=== PATIENT | female | born 1945 | race Caucasian/White ===

== ENCOUNTER → 2018-11-03 | Day surgery (SDC) | payer MEDICARE ==
--- NOTE | 2018-10-28 14:37 | Diagnostic Imaging Report ---
EXAMINATION: CHEST 2 VIEWS INDICATION: Pre-operative COMPARISON: None FINDINGS: LINES/TUBES:None LUNGS:The lungs are well-inflated. No focal consolidation or pulmonary edema. PLEURA:No pleural effusion or pneumothorax. MEDIASTINUM:The cardiomediastinal silhouette appears normal in size and shape. Atherosclerotic calcifications of the thoracic aorta. BONES/SOFT TISSUES:No acute osseous injury. ABDOMEN:No free air under the diaphragm. IMPRESSION: No focal pneumonia or pulmonary edema. Signed by: Malia Chisholm MD on 10/28/2018 2:33 PM
[~2018-11-03] MED LIST: ACETAMINOPHEN 1000 MG/100 ML 100 ML IV ONE; ACETAMINOPHEN/CODEINE 300MG - 30MG TAB ONE; AMITRIPTYLINE H25 MG PO; B12 SL; BIOTIN1 MG PO; BUPIVACAINE HCL 0.25% 10ML MPF VIAL INJ ONE; CALCIUM PO; CARVEDILOL3.125 MG PO; CEFAZOLIN SOD 1 GM/NS 50ML 100 ML IV ONE; CRESTOR10 MG PO; DEXAMETHASONE SOD PHOS INJ 4 MG/ML VIAL ONE; DIOVAN HCT 3201 EAC1 PO; DIOVAN160 MG PO; FENTANYL CITRATE/PF 100MCG/2 ML INJ ONE; GABAPENTIN300 MG PO; LIDOCAINE HCL (LTA) 4 ML SOLN ONE; LIDOCAINE HCL 2% JELLY 5 ML TUBE ONE; LIDOCAINE HCL 2% LOCAL INJ 5 ML SDV VIAL INJ ONE; MIDAZOLAM HCL 2 MG/2 ML VIAL ONE; MORPHINE SULFATE INJ 10 MG/ML ONE; MULTIVITAMINS1 EAC7 PO; ONDANSETRON HCL INJ 2MG/ML 2ML 2 MG/ML VIAL ONE; PROPOFOL IV EMULSION 10 MG/ML 20 ML VIAL ONE; ROCURONIUM BROMIDE 10 MG/ML 5ML VIAL ONE; SCOPOLAMINE 1.5 MG PATCH ONE; SEVOFLURANE INHAL SOLN 250 ML PEN BTL ONE; VITAMIN B1 PO
--- OUTSIDE RECORDS SUMMARY | 2018-11-03 06:30 | XMS REPORT | Continuity of Care Document ---
Author Author [facility] Address Unknown Phone Unavailable Care Team Providers Care Retail Event And Sales Assistant Name Role Phone [facility] Unavailable Unavailable Problems Problem Status Onset Date Classification Date Reported Comments Source SCREENING FOR OSTEOPOROSIS Active 02/16/2014 Condition 02/23/2014 [facility] OBSTRUCTION, SMALL BOWEL Active 02/16/2014 Condition 02/23/2014 [facility] PREOPERATIVE CARDIOVASCULAR EXAMINATION Inactive 12/24/2013 Condition 02/23/2014 [facility] OSTEOARTHRITIS OF KNEE Active 12/24/2013 Condition 02/23/2014 [facility] LEG CRAMPS, BENIGN Active 06/29/2013 Condition 02/23/2014 [facility] RESTLESS LEGS SYNDROME Inactive 06/15/2013 Condition 02/23/2014 [facility] SINUS TACHYCARDIA Inactive 06/15/2013 Condition 02/23/2014 [facility] HYPONATREMIA Inactive 02/13/2013 Condition 02/23/2014 [facility] ROUTINE GYNECOLOGICAL EXAMINATION Active 02/12/2013 Condition 02/23/2014 [facility] SCREENING, COLON CANCER Inactive 02/12/2013 Condition 02/23/2014 [facility] OTHER SCREENING MAMMOGRAM Active 01/20/2013 Condition 02/23/2014 [facility] HYPERCALCEMIA Inactive 01/13/2013 Condition 02/23/2014 [facility] DERMATITIS Inactive 01/09/2013 Condition 02/23/2014 [facility] MYALGIA Inactive 01/09/2013 Condition 02/23/2014 [facility] PHYSICAL EXAM Inactive 03/04/2012 Condition 02/23/2014 [facility] DE QUERVAIN'S TENOSYNOVITIS Inactive 12/17/2011 Condition 02/23/2014 [facility] NEED PROPHYLACTIC VACCINATION&INOCULATION FLU Inactive 12/17/2011 Condition 02/23/2014 [facility] ANXIETY Inactive Condition 02/23/2014 [facility] HYPERLIPIDEMIA, MIXED Active Condition 02/23/2014 [facility] HYPERTENSION, BENIGN ESSENTIAL Active Condition 02/23/2014 [facility] Medications Medication Details Route Status Patient Instructions Ordering Provider Order Date Source MIRAPEX 0.125 MG TABS Take 1 tab po 2-3 hours before bedtime No Longer Active 06/15/2013 [facility] VALSARTAN-HYDROCHLOROTHIAZIDE 320-12.5 MG TABS take 1 tablet po daily Active 02/13/2013 [facility] VALSARTAN-HYDROCHLOROTHIAZIDE 320-12.5 MG TABS take 1 tablet po daily Active 02/13/2013 [facility] DIOVAN HCT 320-25 MG TABS 1 tab daily No Longer Active 04/07/2012 [facility] SIMVASTATIN 40 MG TABS 1 tablet po q day Active 04/07/2012 [facility] SIMVASTATIN 40 MG TABS 1 tablet po q day Active 04/07/2012 [facility] SIMVASTATIN 40 MG TABS 1 tablet po q day Active 04/07/2012 [facility] SIMVASTATIN 40 MG TABS 1 tablet po q day Active 04/07/2012 [facility] VYTORIN 10-20 MG TABS Take 1 tablet po daily No Longer Active 03/04/2012 [facility] VYTORIN 10-20 MG TABS Take 1 tablet po daily No Longer Active 03/04/2012 [facility] ZOLOFT 100 MG TABS 1/2 tab po daily. No Longer Active 12/17/2011 [facility] ZOLOFT 100 MG TABS 1/2 tab po daily. No Longer Active 12/17/2011 [facility] Allergies, Adverse Reactions, Alerts Substance Category Reaction Severity Reaction type Status Date Reported Comments Source VICODIN Drug allergy VICODIN 12/24/2013 [facility] LATEX Environmental allergy LATEX [facility] TETRACYCLINE Drug allergy TETRACYCLINE [facility] Immunizations Immunization Date Given Site Status Last Updated Comments Source influenza immunization (Flu Vax) has been administered 12/24/2013 completed [facility] pneumococcal immunization administered 06/29/2013 completed [facility] influenza immunization (Flu Vax) has been administered 12/17/2011 completed [facility] influenza immunization (Flu Vax) has been administered 01/03/2011 completed [facility] influenza immunization (Flu Vax) has been administered 01/31/2007 completed [facility] Results Order Name Results Value Reference Range Date Interpretation Comments Source Chemistry TSH 1.910 0.360 - 3.740 02/23/2014 [facility] Chemistry CHOLESTEROL 203 - 199 02/23/2014 [facility] Chemistry TRIGLYCERIDE 140 - 149 02/23/2014 [facility] Chemistry HDL 78 >=61 02/23/2014 [facility] Chemistry SODIUM 135 MEQ/L 135 - 145 02/23/2014 [facility] Chemistry POTASSIUM 4.1 MEQ/L 3.5 - 5.1 02/23/2014 [facility] Chemistry CREATININE 0.8 0.5 - 1.4 02/23/2014 [facility] Chemistry BUN 9 7 - 22 02/23/2014 [facility] Chemistry BUN/CREAT 11 6 - 25 02/23/2014 [facility] Chemistry ALBUMIN 3.5 3.5 - 5.0 02/23/2014 [facility] Chemistry CALCIUM 8.7 8.5 - 10.5 02/23/2014 [facility] Chemistry SGPT (ALT) 16 0 - 65 02/23/2014 [facility] Chemistry SGOT (AST) 18 0 - 37 02/23/2014 [facility] Chemistry ALK PHOS 100 39 - 136 02/23/2014 [facility] Chemistry TSH 1.910 0.360 - 3.740 02/23/2014 [facility] Chemistry CHOLESTEROL 203 - 199 02/23/2014 [facility] Chemistry TRIGLYCERIDE 140 - 149 02/23/2014 [facility] Chemistry HDL 78 >=61 02/23/2014 [facility] Chemistry SODIUM 135 MEQ/L 135 - 145 02/23/2014 [facility] Chemistry POTASSIUM 4.1 MEQ/L 3.5 - 5.1 02/23/2014 [facility] Chemistry CREATININE 0.8 0.5 - 1.4 02/23/2014 [facility] Chemistry BUN 9 7 - 22 02/23/2014 [facility] Chemistry BUN/CREAT 11 6 - 25 02/23/2014 [facility] Chemistry ALBUMIN 3.5 3.5 - 5.0 02/23/2014 [facility] Chemistry CALCIUM 8.7 8.5 - 10.5 02/23/2014 [facility] Chemistry SGPT (ALT) 16 0 - 65 02/23/2014 [facility] Chemistry SGOT (AST) 18 0 - 37 02/23/2014 [facility] Chemistry ALK PHOS 100 39 - 136 02/23/2014 [facility] Chemistry TSH 1.910 0.360 - 3.740 02/23/2014 [facility] Chemistry CHOLESTEROL 203 - 199 02/23/2014 [facility] Chemistry TRIGLYCERIDE 140 - 149 02/23/2014 [facility] Chemistry HDL 78 >=61 02/23/2014 [facility] Chemistry LDL 97 - 99 02/23/2014 [facility] Chemistry SODIUM 135 MEQ/L 135 - 145 02/23/2014 [facility] Chemistry POTASSIUM 4.1 MEQ/L 3.5 - 5.1 02/23/2014 [facility] Chemistry CREATININE 0.8 0.5 - 1.4 02/23/2014 [facility] Chemistry BUN 9 7 - 22 02/23/2014 [facility] Chemistry BUN/CREAT 11 6 - 25 02/23/2014 [facility] Chemistry ALBUMIN 3.5 3.5 - 5.0 02/23/2014 [facility] Chemistry CALCIUM 8.7 8.5 - 10.5 02/23/2014 [facility] Chemistry SGPT (ALT) 16 0 - 65 02/23/2014 [facility] Chemistry SGOT (AST) 18 0 - 37 02/23/2014 [facility] Chemistry ALK PHOS 100 39 - 136 02/23/2014 [facility] Chemistry TSH 1.910 0.360 - 3.740 02/23/2014 [facility] Chemistry CHOLESTEROL 203 - 199 02/23/2014 [facility] Chemistry TRIGLYCERIDE 140 - 149 02/23/2014 [facility] Chemistry HDL 78 >=61 02/23/2014 [facility] Chemistry LDL 97 - 99 02/23/2014 [facility] Chemistry SODIUM 135 MEQ/L 135 - 145 02/23/2014 [facility] Chemistry POTASSIUM 4.1 MEQ/L 3.5 - 5.1 02/23/2014 [facility] Chemistry CREATININE 0.8 0.5 - 1.4 02/23/2014 [facility] Chemistry BUN 9 7 - 22 02/23/2014 [facility] Chemistry BUN/CREAT 11 6 - 25 02/23/2014 [facility] Chemistry ALBUMIN 3.5 3.5 - 5.0 02/23/2014 [facility] Chemistry CALCIUM 8.7 8.5 - 10.5 02/23/2014 [facility] Chemistry SGPT (ALT) 16 0 - 65 02/23/2014 [facility] Chemistry SGOT (AST) 18 0 - 37 02/23/2014 [facility] Chemistry ALK PHOS 100 39 - 136 02/23/2014 [facility] Hematology HGB 11.3 12.0 - 16.0 02/23/2014 [facility] Hematology HCT 34.2 36.0 - 48.0 02/23/2014 [facility] Hematology PLATELETS 345 K/CMM 133 - 450 02/23/2014 [facility] Hematology HGB 11.3 12.0 - 16.0 02/23/2014 [facility] Hematology HCT 34.2 36.0 - 48.0 02/23/2014 [facility] Hematology PLATELETS 345 K/CMM 133 - 450 02/23/2014 [facility] Hematology HGB 11.3 12.0 - 16.0 02/23/2014 [facility] Hematology HCT 34.2 36.0 - 48.0 02/23/2014 [facility] Hematology PLATELETS 345 K/CMM 133 - 450 02/23/2014 [facility] Hematology HGB 11.3 12.0 - 16.0 02/23/2014 [facility] Hematology HCT 34.2 36.0 - 48.0 02/23/2014 [facility] Hematology PLATELETS 345 K/CMM 133 - 450 02/23/2014 [facility] Urinalysis UA COLOR Light Yellow 02/23/2014 [facility] Urinalysis BACTERIA URN Few 02/23/2014 [facility] Urinalysis UA COLOR Light Yellow 02/23/2014 [facility] Urinalysis BACTERIA URN Few 02/23/2014 [facility] Urinalysis UA COLOR Light Yellow 02/23/2014 [facility] Urinalysis BACTERIA URN Few 02/23/2014 [facility] Urinalysis UA COLOR Light Yellow 02/23/2014 [facility] Urinalysis BACTERIA URN Few 02/23/2014 [facility] Chemistry SODIUM 135 MEQ/L 135 - 145 12/24/2013 [facility] Chemistry POTASSIUM 3.9 MEQ/L 3.5 - 5.1 12/24/2013 [facility] Chemistry CREATININE 0.7 0.5 - 1.4 12/24/2013 [facility] Chemistry BUN 10 7 - 22 12/24/2013 [facility] Chemistry BUN/CREAT 14 6 - 25 12/24/2013 [facility] Chemistry ALBUMIN 4.0 3.5 - 5.0 12/24/2013 [facility] Chemistry CALCIUM 9.4 8.5 - 10.5 12/24/2013 [facility] Chemistry SGPT (ALT) 37 0 - 65 12/24/2013 [facility] Chemistry SGOT (AST) 42 0 - 37 12/24/2013 [facility] Chemistry ALK PHOS 82 39 - 136 12/24/2013 [facility] Chemistry SODIUM 135 MEQ/L 135 - 145 12/24/2013 [facility] Chemistry POTASSIUM 3.9 MEQ/L 3.5 - 5.1 12/24/2013 [facility] Chemistry CREATININE 0.7 0.5 - 1.4 12/24/2013 [facility] Chemistry BUN 10 7 - 22 12/24/2013 [facility] Chemistry BUN/CREAT 14 6 - 25 12/24/2013 [facility] Chemistry ALBUMIN 4.0 3.5 - 5.0 12/24/2013 [facility] Chemistry CALCIUM 9.4 8.5 - 10.5 12/24/2013 [facility] Chemistry SGPT (ALT) 37 0 - 65 12/24/2013 [facility] Chemistry SGOT (AST) 42 0 - 37 12/24/2013 [facility] Chemistry ALK PHOS 82 39 - 136 12/24/2013 [facility] Chemistry SODIUM 135 MEQ/L 135 - 145 12/24/2013 [facility] Chemistry POTASSIUM 3.9 MEQ/L 3.5 - 5.1 12/24/2013 [facility] Chemistry CREATININE 0.7 0.5 - 1.4 12/24/2013 [facility] Chemistry BUN 10 7 - 22 12/24/2013 [facility] Chemistry BUN/CREAT 14 6 - 25 12/24/2013 [facility] Chemistry ALBUMIN 4.0 3.5 - 5.0 12/24/2013 [facility] Chemistry CALCIUM 9.4 8.5 - 10.5 12/24/2013 [facility] Chemistry SGPT (ALT) 37 0 - 65 12/24/2013 [facility] Chemistry SGOT (AST) 42 0 - 37 12/24/2013 [facility] Chemistry ALK PHOS 82 39 - 136 12/24/2013 [facility] Chemistry SODIUM 135 MEQ/L 135 - 145 12/24/2013 [facility] Chemistry POTASSIUM 3.9 MEQ/L 3.5 - 5.1 12/24/2013 [facility] Chemistry CREATININE 0.7 0.5 - 1.4 12/24/2013 [facility] Chemistry BUN 10 7 - 22 12/24/2013 [facility] Chemistry BUN/CREAT 14 6 - 25 12/24/2013 [facility] Chemistry ALBUMIN 4.0 3.5 - 5.0 12/24/2013 [facility] Chemistry CALCIUM 9.4 8.5 - 10.5 12/24/2013 [facility] Chemistry SGPT (ALT) 37 0 - 65 12/24/2013 [facility] Chemistry SGOT (AST) 42 0 - 37 12/24/2013 [facility] Chemistry ALK PHOS 82 39 - 136 12/24/2013 [facility] Hematology HGB 13.8 12.0 - 16.0 12/24/2013 [facility] Hematology HCT 39.6 36.0 - 48.0 12/24/2013 [facility] Hematology PLATELETS 246 K/CMM 133 - 450 12/24/2013 [facility] Hematology HGB 13.8 12.0 - 16.0 12/24/2013 [facility] Hematology HCT 39.6 36.0 - 48.0 12/24/2013 [facility] Hematology PLATELETS 246 K/CMM 133 - 450 12/24/2013 [facility] Hematology HGB 13.8 12.0 - 16.0 12/24/2013 [facility] Hematology HCT 39.6 36.0 - 48.0 12/24/2013 [facility] Hematology PLATELETS 246 K/CMM 133 - 450 12/24/2013 [facility] Chemistry SODIUM 138 134 - 144 03/03/2013 [facility] Chemistry POTASSIUM 4.2 3.5 - 5.2 03/03/2013 [facility] Chemistry SODIUM 138 134 - 144 03/03/2013 [facility] Chemistry POTASSIUM 4.2 3.5 - 5.2 03/03/2013 [facility] Chemistry SODIUM 138 134 - 144 03/03/2013 [facility] Chemistry POTASSIUM 4.2 3.5 - 5.2 03/03/2013 [facility] Chemistry ALBUMIN 4.3 3.6 - 4.8 02/27/2013 [facility] Chemistry ALK PHOS 70 39 - 117 02/27/2013 [facility] Chemistry SGOT (AST) 28 0 - 40 02/27/2013 [facility] Chemistry SGPT (ALT) 17 0 - 32 02/27/2013 [facility] Chemistry ALBUMIN 4.3 3.6 - 4.8 02/27/2013 [facility] Chemistry ALK PHOS 70 39 - 117 02/27/2013 [facility] Chemistry SGOT (AST) 28 0 - 40 02/27/2013 [facility] Chemistry SGPT (ALT) 17 0 - 32 02/27/2013 [facility] Chemistry ALBUMIN 4.3 3.6 - 4.8 02/27/2013 [facility] Chemistry ALK PHOS 70 39 - 117 02/27/2013 [facility] Chemistry SGOT (AST) 28 0 - 40 02/27/2013 [facility] Chemistry SGPT (ALT) 17 0 - 32 02/27/2013 [facility] Chemistry CHOLESTEROL 206 125 - 200 02/13/2013 [facility] Chemistry HDL 79 >=46 02/13/2013 [facility] Chemistry TRIGLYCERIDE 127 - 150 02/13/2013 [facility] Chemistry LDL 102 MG/DL (CALC) - 130 02/13/2013 [facility] Chemistry BUN 16 7 - 25 02/13/2013 [facility] Chemistry CREATININE 0.80 0.50 - 0.99 02/13/2013 [facility] Chemistry BUN/CREAT NOT APPLICABLE (calc) - 02/13/2013 [facility] Chemistry SODIUM 133 135 - 146 02/13/2013 [facility] Chemistry POTASSIUM 3.6 3.5 - 5.3 02/13/2013 [facility] Chemistry CALCIUM 10.2 8.6 - 10.4 02/13/2013 [facility] Chemistry ALBUMIN 4.8 3.6 - 5.1 02/13/2013 [facility] Chemistry ALK PHOS 73 33 - 130 02/13/2013 [facility] Chemistry SGOT (AST) 35 10 - 35 02/13/2013 [facility] Chemistry SGPT (ALT) 22 6 - 29 02/13/2013 [facility] Chemistry TSH 1.75 0.40 - 4.50 02/13/2013 [facility] Chemistry T4, FREE 1.3 0.8 - 1.8 02/13/2013 [facility] Chemistry CHOLESTEROL 206 125 - 200 02/13/2013 [facility] Chemistry HDL 79 >=46 02/13/2013 [facility] Chemistry TRIGLYCERIDE 127 - 150 02/13/2013 [facility] Chemistry LDL 102 MG/DL (CALC) - 130 02/13/2013 [facility] Chemistry BUN 16 7 - 25 02/13/2013 [facility] Chemistry CREATININE 0.80 0.50 - 0.99 02/13/2013 [facility] Chemistry BUN/CREAT NOT APPLICABLE (calc) - 02/13/2013 [facility] Chemistry SODIUM 133 135 - 146 02/13/2013 [facility] Chemistry POTASSIUM 3.6 3.5 - 5.3 02/13/2013 [facility] Chemistry CALCIUM 10.2 8.6 - 10.4 02/13/2013 [facility] Chemistry ALBUMIN 4.8 3.6 - 5.1 02/13/2013 [facility] Chemistry ALK PHOS 73 33 - 130 02/13/2013 [facility] Chemistry SGOT (AST) 35 10 - 35 02/13/2013 [facility] Chemistry SGPT (ALT) 22 6 - 29 02/13/2013 [facility] Chemistry TSH 1.75 0.40 - 4.50 02/13/2013 [facility] Chemistry T4, FREE 1.3 0.8 - 1.8 02/13/2013 [facility] Chemistry CHOLESTEROL 206 125 - 200 02/13/2013 [facility] Chemistry HDL 79 >=46 02/13/2013 [facility] Chemistry TRIGLYCERIDE 127 - 150 02/13/2013 [facility] Chemistry LDL 102 MG/DL (CALC) - 130 02/13/2013 [facility] Chemistry BUN 16 7 - 25 02/13/2013 [facility] Chemistry CREATININE 0.80 0.50 - 0.99 02/13/2013 [facility] Chemistry BUN/CREAT NOT APPLICABLE (calc) 6 - 02/13/2013 [facility] Chemistry SODIUM 133 135 - 146 02/13/2013 [facility] Chemistry POTASSIUM 3.6 3.5 - 5.3 02/13/2013 [facility] Chemistry CALCIUM 10.2 8.6 - 10.4 02/13/2013 [facility] Chemistry ALBUMIN 4.8 3.6 - 5.1 02/13/2013 [facility] Chemistry ALK PHOS 73 33 - 130 02/13/2013 [facility] Chemistry SGOT (AST) 35 10 - 35 02/13/2013 [facility] Chemistry SGPT (ALT) 22 6 - 29 02/13/2013 [facility] Chemistry TSH 1.75 0.40 - 4.50 02/13/2013 [facility] Chemistry T4, FREE 1.3 0.8 - 1.8 02/13/2013 [facility] Hematology HGB 13.6 11.7 - 15.5 02/13/2013 [facility] Hematology HCT 39.7 35.0 - 45.0 02/13/2013 [facility] Hematology PLATELETS 259 THOUSAND/UL 140 - 400 02/13/2013 [facility] Hematology HGB 13.6 11.7 - 15.5 02/13/2013 [facility] Hematology HCT 39.7 35.0 - 45.0 02/13/2013 [facility] Hematology PLATELETS 259 THOUSAND/UL 140 - 400 02/13/2013 [facility] Hematology HGB 13.6 11.7 - 15.5 02/13/2013 [facility] Hematology HCT 39.7 35.0 - 45.0 02/13/2013 [facility] Hematology PLATELETS 259 THOUSAND/UL 140 - 400 02/13/2013 [facility] Urinalysis UA COLOR YELLOW 02/13/2013 [facility] Urinalysis EPI CELL UR NONE SEEN - 5 02/13/2013 [facility] Urinalysis BACTERIA URN NONE SEEN 02/13/2013 [facility] Urinalysis UA COLOR YELLOW 02/13/2013 [facility] Urinalysis EPI CELL UR NONE SEEN - 5 02/13/2013 [facility] Urinalysis BACTERIA URN NONE SEEN 02/13/2013 [facility] Urinalysis UA COLOR YELLOW 02/13/2013 [facility] Urinalysis EPI CELL UR NONE SEEN - 02/13/2013 [facility] Urinalysis BACTERIA URN NONE SEEN 02/13/2013 [facility] Chemistry BUN 18 7 - 25 01/13/2013 [facility] Chemistry CREATININE 0.78 0.50 - 0.99 01/13/2013 [facility] Chemistry BUN/CREAT NOT APPLICABLE (calc) - 01/13/2013 [facility] Chemistry SODIUM 137 135 - 146 01/13/2013 [facility] Chemistry POTASSIUM 4.2 3.5 - 5.3 01/13/2013 [facility] Chemistry CALCIUM 10.6 8.6 - 10.4 01/13/2013 [facility] Chemistry ALBUMIN 4.6 3.6 - 5.1 01/13/2013 [facility] Chemistry ALK PHOS 79 33 - 130 01/13/2013 [facility] Chemistry SGOT (AST) 32 10 - 35 01/13/2013 [facility] Chemistry SGPT (ALT) 18 6 - 29 01/13/2013 [facility] Chemistry CPK 151 29 - 143 01/13/2013 [facility] Chemistry TSH 2.32 0.40 - 4.50 01/13/2013 [facility] Chemistry BUN 18 7 - 25 01/13/2013 [facility] Chemistry CREATININE 0.78 0.50 - 0.99 01/13/2013 [facility] Chemistry BUN/CREAT NOT APPLICABLE (calc) - 01/13/2013 [facility] Chemistry SODIUM 137 135 - 146 01/13/2013 [facility] Chemistry POTASSIUM 4.2 3.5 - 5.3 01/13/2013 [facility] Chemistry CALCIUM 10.6 8.6 - 10.4 01/13/2013 [facility] Chemistry ALBUMIN 4.6 3.6 - 5.1 01/13/2013 [facility] Chemistry ALK PHOS 79 33 - 130 01/13/2013 [facility] Chemistry SGOT (AST) 32 10 - 35 01/13/2013 [facility] Chemistry SGPT (ALT) 18 6 - 29 01/13/2013 [facility] Chemistry CPK 151 29 - 143 01/13/2013 [facility] Chemistry TSH 2.32 0.40 - 4.50 01/13/2013 [facility] Chemistry BUN 18 7 - 25 01/13/2013 [facility] Chemistry CREATININE 0.78 0.50 - 0.99 01/13/2013 [facility] Chemistry BUN/CREAT NOT APPLICABLE (calc) 6 - 01/13/2013 [facility] Chemistry SODIUM 137 135 - 146 01/13/2013 [facility] Chemistry POTASSIUM 4.2 3.5 - 5.3 01/13/2013 [facility] Chemistry CALCIUM 10.6 8.6 - 10.4 01/13/2013 [facility] Chemistry ALBUMIN 4.6 3.6 - 5.1 01/13/2013 [facility] Chemistry ALK PHOS 79 33 - 130 01/13/2013 [facility] Chemistry SGOT (AST) 32 10 - 35 01/13/2013 [facility] Chemistry SGPT (ALT) 18 6 - 29 01/13/2013 [facility] Chemistry CPK 151 29 - 143 01/13/2013 [facility] Chemistry TSH 2.32 0.40 - 4.50 01/13/2013 [facility] Hematology ESR 9 - 30 01/13/2013 [facility] Hematology HGB 13.6 11.7 - 15.5 01/13/2013 [facility] Hematology HCT 39.8 35.0 - 45.0 01/13/2013 [facility] Hematology ESR 9 - 30 01/13/2013 [facility] Hematology HGB 13.6 11.7 - 15.5 01/13/2013 [facility] Hematology HCT 39.8 35.0 - 45.0 01/13/2013 [facility] Hematology PLATELETS 246 THOUSAND/UL 140 - 400 01/13/2013 [facility] Hematology ESR 9 - 30 01/13/2013 [facility] Hematology HGB 13.6 11.7 - 15.5 01/13/2013 [facility] Hematology HCT 39.8 35.0 - 45.0 01/13/2013 [facility] Hematology PLATELETS 246 THOUSAND/UL 140 - 400 01/13/2013 [facility] Chemistry CHOLESTEROL 188 125 - 200 05/17/2012 [facility] Chemistry HDL 86 >=46 05/17/2012 [facility] Chemistry TRIGLYCERIDE 88 - 150 05/17/2012 [facility] Chemistry LDL 84 MG/DL (CALC) - 130 05/17/2012 [facility] Chemistry ALBUMIN 4.8 3.6 - 5.1 05/17/2012 [facility] Chemistry ALK PHOS 71 33 - 130 05/17/2012 [facility] Chemistry SGOT (AST) 43 10 - 35 05/17/2012 [facility] Chemistry SGPT (ALT) 25 6 - 40 05/17/2012 [facility] Chemistry CHOLESTEROL 188 125 - 200 05/17/2012 [facility] Chemistry HDL 86 >=46 05/17/2012 [facility] Chemistry TRIGLYCERIDE 88 - 150 05/17/2012 [facility] Chemistry LDL 84 MG/DL (CALC) - 130 05/17/2012 [facility] Chemistry ALBUMIN 4.8 3.6 - 5.1 05/17/2012 [facility] Chemistry ALK PHOS 71 33 - 130 05/17/2012 [facility] Chemistry SGOT (AST) 43 10 - 35 05/17/2012 [facility] Chemistry SGPT (ALT) 25 6 - 40 05/17/2012 [facility] Chemistry CHOLESTEROL 188 125 - 200 05/17/2012 [facility] Chemistry HDL 86 >=46 05/17/2012 [facility] Chemistry TRIGLYCERIDE 88 - 150 05/17/2012 [facility] Chemistry LDL 84 MG/DL (CALC) - 130 05/17/2012 [facility] Chemistry ALBUMIN 4.8 3.6 - 5.1 05/17/2012 [facility] Chemistry ALK PHOS 71 33 - 130 05/17/2012 [facility] Chemistry SGOT (AST) 43 10 - 35 05/17/2012 [facility] Chemistry SGPT (ALT) 25 6 - 40 05/17/2012 [facility] Chemistry CHOLESTEROL 198 125 - 200 03/11/2012 [facility] Chemistry HDL 91 >=46 03/11/2012 [facility] Chemistry TRIGLYCERIDE 194 - 150 03/11/2012 [facility] Chemistry LDL 68 MG/DL (CALC) - 130 03/11/2012 [facility] Chemistry BUN 13 7 - 25 03/11/2012 [facility] Chemistry CREATININE 0.69 0.50 - 0.99 03/11/2012 [facility] Chemistry BUN/CREAT NOT APPLICABLE (calc) 6 - 03/11/2012 [facility] Chemistry SODIUM 137 135 - 146 03/11/2012 [facility] Chemistry POTASSIUM 4.0 3.5 - 5.3 03/11/2012 [facility] Chemistry CALCIUM 9.9 8.6 - 10.4 03/11/2012 [facility] Chemistry ALBUMIN 4.6 3.6 - 5.1 03/11/2012 [facility] Chemistry ALK PHOS 65 33 - 130 03/11/2012 [facility] Chemistry SGOT (AST) 52 10 - 35 03/11/2012 [facility] Chemistry SGPT (ALT) 28 6 - 40 03/11/2012 [facility] Chemistry TSH 3.08 0.40 - 4.50 03/11/2012 [facility] Chemistry T4, FREE 1.2 0.8 - 1.8 03/11/2012 [facility] Chemistry CHOLESTEROL 198 125 - 200 03/11/2012 [facility] Chemistry HDL 91 >=46 03/11/2012 [facility] Chemistry TRIGLYCERIDE 194 - 150 03/11/2012 [facility] Chemistry LDL 68 MG/DL (CALC) - 130 03/11/2012 [facility] Chemistry BUN 13 7 - 25 03/11/2012 [facility] Chemistry CREATININE 0.69 0.50 - 0.99 03/11/2012 [facility] Chemistry BUN/CREAT NOT APPLICABLE (calc) - 03/11/2012 [facility] Chemistry SODIUM 137 135 - 146 03/11/2012 [facility] Chemistry POTASSIUM 4.0 3.5 - 5.3 03/11/2012 [facility] Chemistry CALCIUM 9.9 8.6 - 10.4 03/11/2012 [facility] Chemistry ALBUMIN 4.6 3.6 - 5.1 03/11/2012 [facility] Chemistry ALK PHOS 65 33 - 130 03/11/2012 [facility] Chemistry SGOT (AST) 52 10 - 35 03/11/2012 [facility] Chemistry SGPT (ALT) 28 6 - 40 03/11/2012 [facility] Chemistry TSH 3.08 0.40 - 4.50 03/11/2012 [facility] Chemistry T4, FREE 1.2 0.8 - 1.8 03/11/2012 [facility] Chemistry CHOLESTEROL 198 125 - 200 03/11/2012 [facility] Chemistry HDL 91 >=46 03/11/2012 [facility] Chemistry TRIGLYCERIDE 194 - 150 03/11/2012 [facility] Chemistry LDL 68 MG/DL (CALC) - 130 03/11/2012 [facility] Chemistry BUN 13 7 - 25 03/11/2012 [facility] Chemistry CREATININE 0.69 0.50 - 0.99 03/11/2012 [facility] Chemistry BUN/CREAT NOT APPLICABLE (calc) 6 - 22 03/11/2012 [facility] Chemistry SODIUM 137 135 - 146 03/11/2012 [facility] Chemistry POTASSIUM 4.0 3.5 - 5.3 03/11/2012 [facility] Chemistry CALCIUM 9.9 8.6 - 10.4 03/11/2012 [facility] Chemistry ALBUMIN 4.6 3.6 - 5.1 03/11/2012 [facility] Chemistry ALK PHOS 65 33 - 130 03/11/2012 [facility] Chemistry SGOT (AST) 52 10 - 35 03/11/2012 [facility] Chemistry SGPT (ALT) 28 6 - 40 03/11/2012 [facility] Chemistry TSH 3.08 0.40 - 4.50 03/11/2012 [facility] Chemistry T4, FREE 1.2 0.8 - 1.8 03/11/2012 [facility] Hematology HGB 13.9 11.7 - 15.5 03/11/2012 [facility] Hematology HCT 40.9 35.0 - 45.0 03/11/2012 [facility] Hematology PLATELETS 229 THOUSAND/UL 140 - 400 03/11/2012 [facility] Hematology HGB 13.9 11.7 - 15.5 03/11/2012 [facility] Hematology HCT 40.9 35.0 - 45.0 03/11/2012 [facility] Hematology PLATELETS 229 THOUSAND/UL 140 - 400 03/11/2012 [facility] [facility] HGB 13.9 11.7 - 15.5 03/11/2012 [facility] Hematology HCT 40.9 35.0 - 45.0 03/11/2012 [facility] Hematology PLATELETS 229 THOUSAND/UL 140 - 400 03/11/2012 [facility] Urinalysis UA COLOR YELLOW 03/11/2012 [facility] Urinalysis EPI CELL UR 0-5 - 5 03/11/2012 [facility] Urinalysis BACTERIA URN NONE SEEN 03/11/2012 [facility] Urinalysis UA COLOR YELLOW 03/11/2012 [facility] Ur[facility] EPI CELL UR 0-5 - 5 03/11/2012 [facility] Urinalysis BACTERIA URN NONE SEEN 03/11/2012 [facility] Urinalysis UA COLOR YELLOW 03/11/2012 [facility] Urinalysis EPI CELL UR 0-5 - 5 03/11/2012 [facility] Urinalysis BACTERIA URN NONE SEEN 03/11/2012 [facility] Pathology Reports No Data Provided for This Section Diagnostic Reports No Data Provided for This Section Consultation Notes No Data Provided for This Section Discharge Summaries No Data Provided for This Section History and Physicals No Data Provided for This Section Vital Signs Vital Sign Value Date Comments Source Height 66 02/23/2014 [facility] Respitory Rate 12 02/23/2014 [facility] Weight 168 02/23/2014 [facility] Temperature Oral (F) 97.9 F 02/23/2014 [facility] Heart Rate 88 02/23/2014 [facility] Systolic (mm Hg) 125 02/23/2014 [facility] Diastolic (mm Hg) 79 02/23/2014 [facility] Weight 164 02/16/2014 [facility] Temperature Oral (F) 97.9 F 02/16/2014 [facility] Respitory Rate 16 02/16/2014 [facility] Heart Rate 109 02/16/2014 [facility] Systolic (mm Hg) 136 02/16/2014 [facility] Diastolic (mm Hg) 75 02/16/2014 [facility] Weight 174 12/24/2013 [facility] Temperature Oral (F) 97.7 F 12/24/2013 [facility] Respitory Rate 16 12/24/2013 [facility] Heart Rate 95 12/24/2013 [facility] Systolic (mm Hg) 144 12/24/2013 [facility] Diastolic (mm Hg) 88 12/24/2013 [facility] Height 66 12/24/2013 [facility] Weight 172 06/29/2013 [facility] Respitory Rate 12 06/29/2013 [facility] Temperature Oral (F) 96.8 F 06/29/2013 [facility] Heart Rate 87 06/29/2013 [facility] Systolic (mm Hg) 171 06/29/2013 [facility] Diastolic (mm Hg) 82 06/29/2013 [facility] Weight 173 06/15/2013 [facility] Respitory Rate 12 06/15/2013 [facility] Temperature Oral (F) 96.4 F 06/15/2013 [facility] Heart Rate 68 06/15/2013 [facility] Systolic (mm Hg) 159 06/15/2013 [facility] Diastolic (mm Hg) 89 06/15/2013 [facility] Respitory Rate 12 03/31/2013 [facility] Weight 172 03/31/2013 [facility] Temperature Oral (F) 96.3 F 03/31/2013 [facility] Heart Rate 97 03/31/2013 [facility] Systolic (mm Hg) 142 03/31/2013 [facility] Diastolic (mm Hg) 82 03/31/2013 [facility] Temperature Oral (F) 96.5 F 02/12/2013 [facility] Respitory Rate 16 02/12/2013 [facility] Heart Rate 82 02/12/2013 [facility] Systolic (mm Hg) 116 02/12/2013 [facility] Diastolic (mm Hg) 66 02/12/2013 [facility] Weight 170 02/12/2013 [facility] Weight 171 01/09/2013 [facility] Temperature Oral (F) 98.3 F 01/09/2013 [facility] Respitory Rate 16 01/09/2013 [facility] Heart Rate 82 01/09/2013 [facility] Systolic (mm Hg) 139 01/09/2013 [facility] Diastolic (mm Hg) 84 01/09/2013 [facility] Weight 169 05/16/2012 [facility] Respitory Rate 12 05/16/2012 [facility] Temperature Oral (F) 97.8 F 05/16/2012 [facility] Heart Rate 77 05/16/2012 [facility] Systolic (mm Hg) 134 05/16/2012 [facility] Diastolic (mm Hg) 77 05/16/2012 [facility] Weight 174 03/04/2012 [facility] Respitory Rate 12 03/04/2012 [facility] Heart Rate 81 03/04/2012 [facility] Systolic (mm Hg) 136 03/04/2012 [facility] Diastolic (mm Hg) 83 03/04/2012 [facility] Weight 167 12/17/2011 [facility] Respitory Rate 12 12/17/2011 [facility] Systolic (mm Hg) 109 12/17/2011 [facility] Diastolic (mm Hg) 76 12/17/2011 [facility] Heart Rate 93 12/17/2011 [facility] Temperature Oral (F) 96.7 F 12/17/2011 [facility] Height 66 12/17/2011 [facility] Encounters Location Location Details Encounter Type Encounter Number Reason For Visit Attending Provider ADM Date DC Date Status Source [facility] Office Visit [id number] Zeynep Nascimento MD 06/15/2013 06/15/2013 [facility] Office Visit [id number] Zeynep Nascimento MD 06/29/2013 06/29/2013 [facility] Lab Report [id number] Zeynep Nascimento MD 12/24/2013 12/24/2013 [facility] Office Visit [id number] Zeynep Nascimento MD 02/16/2014 02/16/2014 [facility] Lab Report [id number] Zeynep Nascimento MD 02/23/2014 02/23/2014 [facility] Procedures Procedure Code Date Perfomer Comments Source smoking/tobacco cessation, patient education and counseling 14 02/16/2014 no [facility] smoking/tobacco cessation, patient education and counseling 14 12/24/2013 no [facility] bone density 4002.65 10/28/2009 Done [facility] Assessment and Plan No Data Provided for This Section Plan of Care No Data Provided for This Section Social History No Data Provided for This Section Family History No Data Provided for This Section Advance Directives No Data Provided for This Section Functional Status No Data Provided for This Section
--- OUTSIDE RECORDS SUMMARY | 2018-11-03 06:30 | XMS REPORT | Continuity of Care Document ---
Author Author [facility] Organization [facility] Address Unknown Phone Unavailable Care Team Providers Care Taste Tester Name Role Phone MD Azam, Zeynep Unavailable Insurance Providers Payer name Policy type / Coverage type Policy ID Covered libertarian ID Policy Hall HUMANA - OPEN ACCESS - NATIONAL POS - CHOIC [employer] HUMANA - OPEN ACCESS - NATIONAL POS - CHOIC HUMANA - OPEN ACCESS - NATIONAL POS - CHOIC HUMANA - OPEN ACCESS - NATIONAL POS [place] ACCESS - NATIONAL POS - CHOIC HUMANA - OPEN ACCESS - NATIONAL POS - CHOIC [employer] HU[employer]NA - OPEN ACCESS - NATIONAL POS - CHOIC [employer] HU[employer] - OPEN ACCESS - NATIONAL POS - [place] [employer] [place] - [place] ACCESS - NATIONAL POS - [place] [employer] [place] - [place] ACCESS - NATIONAL POS - [place] [employer] [place] - [place] ACCESS - NATIONAL POS - [place] [employer] [place] - [place] ACCESS - NATIONAL POS - [place] [employer] [place] - [place] ACCESS - NATIONAL POS - [place] [employer] HU[place] - [place] ACCESS - NATIONAL POS - [place] [employer] - OPEN ACCESS - NATIONAL POS - CHOIC Encounters Encounter Performer Location Date Office Visit Zeynep Nascimento MD [facility] Jun 29, 2013 Allergies, Adverse Reactions, Alerts Type Substance Reaction Status Environmental allergy LATEX Active Drug allergy TETRACYCLINE Active Problems Problem Effective Dates Problem Status ANXIETY Inactive HYPERLIPIDEMIA, MIXED Active HYPERTENSION, BENIGN ESSENTIAL Active DE QUERVAIN'S TENOSYNOVITIS Dec 17, 2011 Inactive NEED PROPHYLACTIC VACCINATION&INOCULATION FLU Dec 17, 2011 Inactive PHYSICAL EXAM Mar 04, 2012 Inactive DERMATITIS Jan 09, 2013 Inactive MYALGIA Jan 09, 2013 Inactive HYPERCALCEMIA Jan 13, 2013 Inactive OTHER SCREENING MAMMOGRAM Jan 20, 2013 Inactive ROUTINE GYNECOLOGICAL EXAMINATION Feb 12, 2013 Inactive SCREENING, COLON CANCER Feb 12, 2013 Inactive HYPONATREMIA Feb 13, 2013 Inactive RESTLESS LEGS SYNDROME Jun 15, 2013 Inactive SINUS TACHYCARDIA Jun 15, 2013 Inactive LEG CRAMPS, BENIGN Jun 29, 2013 Active Procedures Date Description Comments Oct 28, 2009 bone density Done Dec 17, 2011 smoking status former smoker Medications Medication Instructions Start Date Status DIOVAN HCT 320-25 MG TABS 1 tab daily Inactive VYTORIN 10-20 MG TABS Take 1 tablet po daily Mar 04, 2012 Inactive SIMVASTATIN 40 MG TABS 1 tablet po q day Apr 07, 2012 Active ZOLOFT 100 MG TABS 1/2 tab po daily. Dec 17, 2011 Inactive VALSARTAN-HYDROCHLOROTHIAZIDE 320-12.5 MG TABS take 1 tablet po daily Feb 13, 2013 Active MIRAPEX 0.125 MG TABS Take 1 tab po 2-3 hours before bedtime Jun 15, 2013 Inactive Immunizations Vaccine Date Status influenza immunization (Flu Vax) has been administered Jan 03, 2011 completed influenza immunization (Flu Vax) has been administered Jan 31, 2007 completed influenza immunization (Flu Vax) has been administered Dec 17, 2011 completed pneumococcal immunization administered Jun 29, 2013 completed Vital Signs Date Description Test Result Dec 17, 2011 weight E&M - 3141-9 WEIGHT 167 lb Dec 17, 2011 respiratory rate E&M - 9279-1 RESP RATE 12 /min Dec 17, 2011 blood pressure, systolic - 8480-6 BP SYSTOLIC 109 mm Hg Dec 17, 2011 blood pressure, diastolic - 8462-4 BP DIASTOLIC 76 mm Hg Dec 17, 2011 pulse rate E&M - 8867-4 PULSE RATE 93 /min Dec 17, 2011 temperature E&M TEMPERATURE 96.7 deg f Dec 17, 2011 height E&M - 8302-2 HEIGHT 66 in Mar 04, 2012 weight E&M - 3141-9 WEIGHT 174 lb Mar 04, 2012 respiratory rate E&M - 9279-1 RESP RATE 12 /min Mar 04, 2012 pulse rate E&M - 8867-4 PULSE RATE 81 /min Mar 04, 2012 blood pressure, systolic - 8480-6 BP SYSTOLIC 136 mm Hg Mar 04, 2012 blood pressure, diastolic - 8462-4 BP DIASTOLIC 83 mm Hg May 16, 2012 weight E&M - 3141-9 WEIGHT 169 lb May 16, 2012 respiratory rate E&M - 9279-1 RESP RATE 12 /min May 16, 2012 temperature E&M TEMPERATURE 97.8 deg f May 16, 2012 pulse rate E&M - 8867-4 PULSE RATE 77 /min May 16, 2012 blood pressure, systolic - 8480-6 BP SYSTOLIC 134 mm Hg May 16, 2012 blood pressure, diastolic - 8462-4 BP DIASTOLIC 77 mm Hg Jan 09, 2013 weight E&M - 3141-9 WEIGHT 171 lb Jan 09, 2013 temperature E&M TEMPERATURE 98.3 deg f Jan 09, 2013 respiratory rate E&M - 9279-1 RESP RATE 16 /min Jan 09, 2013 pulse rate E&M - 8867-4 PULSE RATE 82 /min Jan 09, 2013 blood pressure, systolic - 8480-6 BP SYSTOLIC 139 mm Hg Jan 09, 2013 blood pressure, diastolic - 8462-4 BP DIASTOLIC 84 mm Hg Feb 12, 2013 temperature E&M TEMPERATURE 96.5 deg f Feb 12, 2013 respiratory rate E&M - 9279-1 RESP RATE 16 /min Feb 12, 2013 pulse rate E&M - 8867-4 PULSE RATE 82 /min Feb 12, 2013 blood pressure, systolic - 8480-6 BP SYSTOLIC 116 mm Hg Feb 12, 2013 blood pressure, diastolic - 8462-4 BP DIASTOLIC 66 mm Hg Feb 12, 2013 weight E&M - 3141-9 WEIGHT 170 lb Mar 31, 2013 respiratory rate E&M - 9279-1 RESP RATE 12 /min Mar 31, 2013 weight E&M - 3141-9 WEIGHT 172 lb Mar 31, 2013 temperature E&M TEMPERATURE 96.3 deg f Mar 31, 2013 pulse rate E&M - 8867-4 PULSE RATE 97 /min Mar 31, 2013 blood pressure, systolic - 8480-6 BP SYSTOLIC 142 mm Hg Mar 31, 2013 blood pressure, diastolic - 8462-4 BP DIASTOLIC 82 mm Hg Mar 31, 2013 blood pressure, systolic, second observation BP SYS #2 128 mm Hg Mar 31, 2013 blood pressure, diastolic, second observation BP LYNETTE #2 72 mm Hg Jun 15, 2013 weight E&M - 3141-9 WEIGHT 173 lb Jun 15, 2013 respiratory rate E&M - 9279-1 RESP RATE 12 /min Jun 15, 2013 temperature E&M TEMPERATURE 96.4 deg f Jun 15, 2013 pulse rate E&M - 8867-4 PULSE RATE 68 /min Jun 15, 2013 blood pressure, systolic - 8480-6 BP SYSTOLIC 159 mm Hg Jun 15, 2013 blood pressure, diastolic - 8462-4 BP DIASTOLIC 89 mm Hg Jun 15, 2013 blood pressure, systolic, left arm BP SYS L ARM 122 mm Hg Jun 15, 2013 blood pressure, diastolic, left arm BP LYNETTE L ARM 82 mm Hg Jun 29, 2013 weight E&M - 3141-9 WEIGHT 172 lb Jun 29, 2013 respiratory rate E&M - 9279-1 RESP RATE 12 /min Jun 29, 2013 temperature E&M TEMPERATURE 96.8 deg f Jun 29, 2013 pulse rate E&M - 8867-4 PULSE RATE 87 /min Jun 29, 2013 blood pressure, systolic - 8480-6 BP SYSTOLIC 171 mm Hg Jun 29, 2013 blood pressure, diastolic - 8462-4 BP DIASTOLIC 82 mm Hg Jun 29, 2013 blood pressure, systolic, second observation BP SYS #2 153 mm Hg Jun 29, 2013 blood pressure, diastolic, second observation BP LYNETTE #2 90 mm Hg Jun 29, 2013 blood pressure, systolic, third observation BP SYS #3 151 mm Hg Jun 29, 2013 blood pressure, diastolic, third observation BP LYNETTE #3 91 mm Hg Results Date Description Test Name Value Reference Interpretation Status Mar 11, 2012 hemoglobin, blood HGB 13.9 g/dL 11.7-15.5 Normal Mar 11, 2012 hematocrit, blood HCT 40.9 % 35.0-45.0 Normal Mar 11, 2012 platelet count PLATELETS 229 THOUSAND/UL /mm3 140-400 Normal Jan 12, 2013 erythrocyte sedimentation rate ESR 9 mm/hr < OR=30 Normal Jan 12, 2013 hemoglobin, blood HGB 13.6 g/dL 11.7-15.5 Normal Jan 12, 2013 hematocrit, blood HCT 39.8 % 35.0-45.0 Normal Jan 12, 2013 platelet count PLATELETS 246 THOUSAND/UL /mm3 140-400 Normal Feb 13, 2013 hemoglobin, blood HGB 13.6 g/dL 11.7-15.5 Normal Feb 13, 2013 hematocrit, blood HCT 39.7 % 35.0-45.0 Normal Feb 13, 2013 platelet count PLATELETS 259 THOUSAND/UL /mm3 140-400 Normal Mar 11, 2012 urine color UA COLOR YELLOW null YELLOW Normal Mar 11, 2012 epithelial cells, urine EPI CELL UR 0-5 /lpf < OR=5 Mar 11, 2012 bacteria, urine microscopy BACTERIA URN NONE SEEN null NONE SEEN Normal Feb 13, 2013 urine color UA COLOR YELLOW null YELLOW Normal Feb 13, 2013 epithelial cells, urine EPI CELL UR NONE SEEN /lpf < OR=5 Normal Feb 13, 2013 bacteria, urine microscopy BACTERIA URN NONE SEEN null NONE SEEN Normal Mar 11, 2012 cholesterol, serum CHOLESTEROL 198 mg/dl 125-200 Normal Mar 11, 2012 HDL cholesterol, serum HDL 91 mg/dl > OR=46 Normal Mar 11, 2012 triglyceride, serum, fasting TRIGLYCERIDE 194 mg/dl <150 High Mar 11, 2012 LDL cholesterol, serum LDL 68 MG/DL (CALC) mg/dl <130 Normal Mar 11, 2012 urea nitrogen, blood BUN 13 mg/dL 7-25 Normal Mar 11, 2012 creatinine, serum CREATININE 0.69 mg/dL 0.50-0.99 Normal Mar 11, 2012 urea nitrogen/creatinine ratio, serum BUN/CREAT NOT APPLICABLE (calc) null -Mar 11, 2012 sodium, serum SODIUM 137 mmol/L 135-146 Normal Mar 11, 2012 potassium, serum POTASSIUM 4.0 mmol/L 3.5-5.3 Normal Mar 11, 2012 calcium, serum CALCIUM 9.9 mg/dL 8.6-10.4 Normal Mar 11, 2012 albumin, serum ALBUMIN 4.6 g/dL 3.6-5.1 Normal Mar 11, 2012 alkaline phosphatase, serum ALK PHOS 65 U/L 33-130 Normal Mar 11, 2012 aspartate aminotransferase (SGOT), serum SGOT (AST) 52 U/L 10-35 High Mar 11, 2012 alanine aminotransferase (SGPT), serum SGPT (ALT) 28 U/L 6-40 Normal Mar 11, 2012 thyroid stimulating hormone, serum TSH 3.08 uIU/mL 0.40-4.50 Normal Mar 11, 2012 thyroxine, serum, free T4, FREE 1.2 ng/dl 0.8-1.8 Normal May 17, 2012 cholesterol, serum CHOLESTEROL 188 mg/dl 125-200 Normal May 17, 2012 HDL cholesterol, serum HDL 86 mg/dl > OR=46 Normal May 17, 2012 triglyceride, serum, fasting TRIGLYCERIDE 88 mg/dl <150 Normal May 17, 2012 LDL cholesterol, serum LDL 84 MG/DL (CALC) mg/dl <130 Normal May 17, 2012 albumin, serum ALBUMIN 4.8 g/dL 3.6-5.1 Normal May 17, 2012 alkaline phosphatase, serum ALK PHOS 71 U/L 33-130 Normal May 17, 2012 aspartate aminotransferase (SGOT), serum SGOT (AST) 43 U/L 10-35 High May 17, 2012 alanine aminotransferase (SGPT), serum SGPT (ALT) 25 U/L 6-40 Normal Jan 12, 2013 urea nitrogen, blood BUN 18 mg/dL 7-25 Normal Jan 12, 2013 creatinine, serum CREATININE 0.78 mg/dL 0.50-0.99 Normal Jan 12, 2013 urea nitrogen/creatinine ratio, serum BUN/CREAT NOT APPLICABLE (calc) null -Jan 12, 2013 sodium, serum SODIUM 137 mmol/L 135-146 Normal Jan 12, 2013 potassium, serum POTASSIUM 4.2 mmol/L 3.5-5.3 Normal Jan 12, 2013 calcium, serum CALCIUM 10.6 mg/dL 8.6-10.4 High Jan 12, 2013 albumin, serum ALBUMIN 4.6 g/dL 3.6-5.1 Normal Jan 12, 2013 alkaline phosphatase, serum ALK PHOS 79 U/L 33-130 Normal Jan 12, 2013 aspartate aminotransferase (SGOT), serum SGOT (AST) 32 U/L 10-35 Normal Jan 12, 2013 alanine aminotransferase (SGPT), serum SGPT (ALT) 18 U/L 6-29 Normal Jan 12, 2013 creatine kinase, serum CPK 151 U/L 29-143 High Jan 12, 2013 thyroid stimulating hormone, serum TSH 2.32 uIU/mL 0.40-4.50 Normal Feb 13, 2013 cholesterol, serum CHOLESTEROL 206 mg/dl 125-200 High Feb 13, 2013 HDL cholesterol, serum HDL 79 mg/dl > OR=46 Normal Feb 13, 2013 triglyceride, serum, fasting TRIGLYCERIDE 127 mg/dl <150 Normal Feb 13, 2013 LDL cholesterol, serum LDL 102 MG/DL (CALC) mg/dl <130 Normal Feb 13, 2013 urea nitrogen, blood BUN 16 mg/dL 7-25 Normal Feb 13, 2013 creatinine, serum CREATININE 0.80 mg/dL 0.50-0.99 Normal Feb 13, 2013 urea nitrogen/creatinine ratio, serum BUN/CREAT NOT APPLICABLE (calc) null -Feb 13, 2013 sodium, serum SODIUM 133 mmol/L 135-146 Low Feb 13, 2013 potassium, serum POTASSIUM 3.6 mmol/L 3.5-5.3 Normal Feb 13, 2013 calcium, serum CALCIUM 10.2 mg/dL 8.6-10.4 Normal Feb 13, 2013 albumin, serum ALBUMIN 4.8 g/dL 3.6-5.1 Normal Feb 13, 2013 alkaline phosphatase, serum ALK PHOS 73 U/L 33-130 Normal Feb 13, 2013 aspartate aminotransferase (SGOT), serum SGOT (AST) 35 U/L 10-35 Normal Feb 13, 2013 alanine aminotransferase (SGPT), serum SGPT (ALT) 22 U/L 6-29 Normal Feb 13, 2013 thyroid stimulating hormone, serum TSH 1.75 uIU/mL 0.40-4.50 Normal Feb 13, 2013 thyroxine, serum, free T4, FREE 1.3 ng/dl 0.8-1.8 Normal Feb 27, 2013 albumin, serum ALBUMIN 4.3 g/dL 3.6-4.8 Feb 27, 2013 alkaline phosphatase, serum ALK PHOS 70 U/L 39-117 Feb 27, 2013 aspartate aminotransferase (SGOT), serum SGOT (AST) 28 U/L 0-40 Feb 27, 2013 alanine aminotransferase (SGPT), serum SGPT (ALT) 17 U/L 0-32 Mar 03, 2013 sodium, serum SODIUM 138 mmol/L 134-144 Mar 03, 2013 potassium, serum POTASSIUM 4.2 mmol/L 3.5-5.2
--- OUTSIDE RECORDS SUMMARY | 2018-11-03 06:30 | XMS REPORT | Continuity of Care Document ---
Author Author [facility] Organization [facility] Address Unknown Phone Unavailable Care Team Providers Care Hand Umbrella Tipper Name Role Phone MD Azam, Zeynep HOROWITZ Unavailable Insurance Providers Payer name Policy type / Coverage type Policy ID Covered constitution party ID Policy Hall HUMANA - OPEN ACCESS [...] Location Date Office Visit Zeynep Nascimento MD [facility] Jun 15, 2013 Allergies, Adverse Reactions, Alerts Type Substance Reaction Status Environmental allergy LATEX Active Drug allergy TETRACYCLINE Active Problems Problem Effective Dates Problem Status ANXIETY Active HYPERLIPIDEMIA, MIXED Active HYPERTENSION, BENIGN ESSENTIAL Active DE QUERVAIN'S TENOSYNOVITIS Dec 17, 2011 Inactive NEED PROPHYLACTIC VACCINATION&INOCULATION FLU Dec 17, 2011 Inactive PHYSICAL EXAM Mar 04, 2012 Inactive DERMATITIS Jan 09, 2013 Active MYALGIA Jan 09, 2013 Active HYPERCALCEMIA Jan 13, 2013 Inactive OTHER SCREENING MAMMOGRAM Jan 20, 2013 Inactive ROUTINE GYNECOLOGICAL EXAMINATION Feb 12, 2013 Inactive SCREENING, COLON CANCER Feb 12, 2013 Inactive HYPONATREMIA Feb 13, 2013 Inactive RESTLESS LEGS SYNDROME Jun 15, 2013 Active SINUS TACHYCARDIA Jun 15, 2013 Active Procedures Date Description Comments Oct [...] 2-3 hours before bedtime Jun 15, 2013 Active Immunizations Vaccine Date Status influenza immunization (Flu Vax) has been administered Jan 03, 2011 completed influenza immunization (Flu Vax) has been administered Jan 31, 2007 completed influenza immunization (Flu Vax) has been administered Dec 17, 2011 completed Vital Signs Date Description Test Result [...] BP LYNETTE L ARM 82 mm Hg Results Date Description Test Name [...] ratio, serum BUN/CREAT NOT APPLICABLE (calc) null 6-Jan 12, 2013 sodium, serum SODIUM 137 mmol/L [...]
--- OUTSIDE RECORDS SUMMARY | 2018-11-03 06:31 | XMS REPORT | Continuity of Care Document ---
Author Author [facility] Organization [facility] Address Unknown Phone Unavailable Care Team Providers Care Medical Research Scientist Name Role Phone MD Azam, Zeynep HOROWITZ [...] N[place] - [place] [facility] HUMANA - OPEN ACCESS - [place]ATIONAL POS - [place] [facility] HUMANA - OPEN ACCESS - [place]ATIONAL POS - [place] [facility] HUMANA - OPEN ACCESS - NATIONAL POS - CHOIC Encounters Encounter Performer Location Date Lab Report Zeynep Nascimento MD [facility] Feb 23, 2014 Allergies, Adverse Reactions, Alerts Type Substance Reaction Status Environmental allergy LATEX Active Drug allergy TETRACYCLINE Active Drug allergy VICODIN Active Problems Problem Effective Dates Problem Status ANXIETY Inactive HYPERLIPIDEMIA, MIXED Active HYPERTENSION, BENIGN ESSENTIAL Active DE QUERVAIN'S TENOSYNOVITIS Dec 17, 2011 Inactive NEED PROPHYLACTIC VACCINATION&INOCULATION FLU Dec 17, 2011 Inactive PHYSICAL EXAM Mar 04, 2012 Inactive DERMATITIS Jan 09, 2013 Inactive MYALGIA Jan 09, 2013 Inactive HYPERCALCEMIA Jan 13, 2013 Inactive OTHER SCREENING MAMMOGRAM Jan 20, 2013 Active ROUTINE GYNECOLOGICAL EXAMINATION Feb 12, 2013 Active SCREENING, COLON CANCER Feb 12, 2013 Inactive HYPONATREMIA Feb 13, 2013 Inactive RESTLESS LEGS SYNDROME Jun 15, 2013 Inactive SINUS TACHYCARDIA Jun 15, 2013 Inactive LEG CRAMPS, BENIGN Jun 29, 2013 Active PREOPERATIVE EXAMINATION, UNSPECIFIED Dec 24, 2013 Inactive PREOPERATIVE CARDIOVASCULAR EXAMINATION Dec 24, 2013 Inactive OSTEOARTHRITIS OF KNEE Dec 24, 2013 Active SCREENING FOR OSTEOPOROSIS Feb 16, 2014 Active OBSTRUCTION, SMALL BOWEL Feb 16, 2014 Active Procedures Date Description Comments Oct 28, 2009 bone density Done Dec 17, 2011 smoking status former smoker Dec 24, 2013 smoking status Former smoker Dec 24, 2013 smoking/tobacco cessation, patient education and counseling no Feb 16, 2014 smoking status Former smoker Feb 16, 2014 smoking/tobacco cessation, patient education and counseling no Feb 23, 2014 smoking status Former smoker Medications Medication Instructions Start Date Status DIOVAN HCT 320-25 MG TABS 1 tab daily Inactive VYTORIN 10-20 MG TABS Take 1 tablet po daily Mar 04, 2012 Inactive SIMVASTATIN 40 MG TABS 1 tablet po q day Apr 07, 2012 Active ZOLOFT 100 MG TABS 1/2 tab po daily. Dec 17, 2011 Inactive MIRAPEX 0.125 MG TABS Take 1 tab po 2-3 hours before bedtime Jun 15, 2013 Inactive VALSARTAN-HYDROCHLOROTHIAZIDE 320-12.5 MG TABS take 1 tablet po daily Feb 13, 2013 Active Immunizations Vaccine Date Status influenza immunization (Flu Vax) has been administered Jan 03, 2011 completed influenza immunization (Flu Vax) has been administered Jan 31, 2007 completed influenza immunization (Flu Vax) has been administered Dec 17, 2011 completed pneumococcal immunization administered Jun 29, 2013 completed influenza immunization (Flu Vax) has been administered Dec 24, 2013 completed Vital Signs Date Description Test [...] observation BP LYNETTE #3 91 mm Hg Dec 24, 2013 weight E&M - 3141-9 WEIGHT 174 lb Dec 24, 2013 temperature E&M TEMPERATURE 97.7 deg f Dec 24, 2013 respiratory rate E&M - 9279-1 RESP RATE 16 /min Dec 24, 2013 pulse rate E&M - 8867-4 PULSE RATE 95 /min Dec 24, 2013 blood pressure, systolic - 8480-6 BP SYSTOLIC 144 mm Hg Dec 24, 2013 blood pressure, diastolic - 8462-4 BP DIASTOLIC 88 mm Hg Dec 24, 2013 height E&M - 8302-2 HEIGHT 66 in Feb 16, 2014 weight E&M - 3141-9 WEIGHT 164 lb Feb 16, 2014 temperature E&M TEMPERATURE 97.9 deg f Feb 16, 2014 respiratory rate E&M - 9279-1 RESP RATE 16 /min Feb 16, 2014 pulse rate E&M - 8867-4 PULSE RATE 109 /min Feb 16, 2014 blood pressure, systolic - 8480-6 BP SYSTOLIC 136 mm Hg Feb 16, 2014 blood pressure, diastolic - 8462-4 BP DIASTOLIC 75 mm Hg Feb 23, 2014 height E&M - 8302-2 HEIGHT 66 in Feb 23, 2014 respiratory rate E&M - 9279-1 RESP RATE 12 /min Feb 23, 2014 weight E&M - 3141-9 WEIGHT 168 lb Feb 23, 2014 temperature E&M TEMPERATURE 97.9 deg f Feb 23, 2014 pulse rate E&M - 8867-4 PULSE RATE 88 /min Feb 23, 2014 blood pressure, systolic - 8480-6 BP SYSTOLIC 125 mm Hg Feb 23, 2014 blood pressure, diastolic - 8462-4 BP DIASTOLIC 79 mm Hg Results Date Description Test Name Value Reference Interpretation Status Dec 24, 2013 hemoglobin, blood HGB 13.8 g/dL 12.0-16.0 Dec 24, 2013 hematocrit, blood HCT 39.6 % 36.0-48.0 Dec 24, 2013 platelet count PLATELETS 246 K/CMM /mm3 133-450 Feb 23, 2014 hemoglobin, blood HGB 11.3 g/dL 12.0-16.0 Low Feb 23, 2014 hematocrit, blood HCT 34.2 % 36.0-48.0 Low Feb 23, 2014 platelet count PLATELETS 345 K/CMM /mm3 133-450 Feb 23, 2014 hemoglobin, blood HGB 11.3 g/dL 12.0-16.0 Low Feb 23, 2014 hematocrit, blood HCT 34.2 % 36.0-48.0 Low Feb 23, 2014 platelet count PLATELETS 345 K/CMM /mm3 133-450 Feb 23, 2014 hemoglobin, blood HGB 11.3 g/dL 12.0-16.0 Low Feb 23, 2014 hematocrit, blood HCT 34.2 % 36.0-48.0 Low Feb 23, 2014 platelet count PLATELETS 345 K/CMM /mm3 133-450 Mar 11, 2012 hemoglobin, blood HGB 13.9 [...] count PLATELETS 259 THOUSAND/UL /mm3 140-400 Normal Dec 24, 2013 hemoglobin, blood HGB 13.8 g/dL 12.0-16.0 Dec 24, 2013 hematocrit, blood HCT 39.6 % 36.0-48.0 Dec 24, 2013 platelet count PLATELETS 246 K/CMM /mm3 133-450 Feb 23, 2014 hemoglobin, blood HGB 11.3 g/dL 12.0-16.0 Low Feb 23, 2014 hematocrit, blood HCT 34.2 % 36.0-48.0 Low Feb 23, 2014 platelet count PLATELETS 345 K/CMM /mm3 133-450 Feb 23, 2014 urine color UA COLOR Light Yellow null Yellow Feb 23, 2014 bacteria, urine microscopy BACTERIA URN Few null None Seen Feb 23, 2014 urine color UA COLOR Light Yellow null Yellow Feb 23, 2014 bacteria, urine microscopy BACTERIA URN Few null None Seen Feb 23, 2014 urine color UA COLOR Light Yellow null Yellow Feb 23, 2014 bacteria, urine microscopy BACTERIA URN Few null None Seen Mar 11, 2012 urine color UA COLOR [...] NONE SEEN null NONE SEEN Normal Feb 23, 2014 urine color UA COLOR Light Yellow null Yellow Feb 23, 2014 bacteria, urine microscopy BACTERIA URN Few null None Seen Dec 24, 2013 sodium, serum SODIUM 135 MEQ/L mmol/L 135-145 Dec 24, 2013 potassium, serum POTASSIUM 3.9 MEQ/L mmol/L 3.5-5.1 Dec 24, 2013 creatinine, serum CREATININE 0.7 mg/dL 0.5-1.4 Dec 24, 2013 urea nitrogen, blood BUN 10 mg/dL -Dec 24, 2013 urea nitrogen/creatinine ratio, serum BUN/CREAT 14 null 6-25 Dec 24, 2013 albumin, serum ALBUMIN 4.0 g/dL 3.5-5.0 Dec 24, 2013 calcium, serum CALCIUM 9.4 mg/dL 8.5-10.5 Dec 24, 2013 alanine aminotransferase (SGPT), serum SGPT (ALT) 37 U/L 0-65 Dec 24, 2013 aspartate aminotransferase (SGOT), serum SGOT (AST) 42 U/L 0-37 High Dec 24, 2013 alkaline phosphatase, serum ALK PHOS 82 U/L 39-136 Feb 23, 2014 thyroid stimulating hormone, serum TSH 1.910 uIU/mL 0.360-3.740 Feb 23, 2014 cholesterol, serum CHOLESTEROL 203 mg/dl <=199 High Feb 23, 2014 triglyceride, serum, fasting TRIGLYCERIDE 140 mg/dl <=149 Feb 23, 2014 HDL cholesterol, serum HDL 78 mg/dl >=61 Feb 23, 2014 sodium, serum SODIUM 135 MEQ/L mmol/L 135-145 Feb 23, 2014 potassium, serum POTASSIUM 4.1 MEQ/L mmol/L 3.5-5.1 Feb 23, 2014 creatinine, serum CREATININE 0.8 mg/dL 0.5-1.4 Feb 23, 2014 urea nitrogen, blood BUN 9 mg/dL 7-Feb 23, 2014 urea nitrogen/creatinine ratio, serum BUN/CREAT 11 null 6-25 Feb 23, 2014 albumin, serum ALBUMIN 3.5 g/dL 3.5-5.0 Feb 23, 2014 calcium, serum CALCIUM 8.7 mg/dL 8.5-10.5 Feb 23, 2014 alanine aminotransferase (SGPT), serum SGPT (ALT) 16 U/L 0-65 Feb 23, 2014 aspartate aminotransferase (SGOT), serum SGOT (AST) 18 U/L 0-37 Feb 23, 2014 alkaline phosphatase, serum ALK PHOS 100 U/L 39-136 Feb 23, 2014 thyroid stimulating hormone, serum TSH 1.910 uIU/mL 0.360-3.740 Feb 23, 2014 cholesterol, serum CHOLESTEROL 203 mg/dl <=199 High Feb 23, 2014 triglyceride, serum, fasting TRIGLYCERIDE 140 mg/dl <=149 Feb 23, 2014 HDL cholesterol, serum HDL 78 mg/dl >=61 Feb 23, 2014 sodium, serum SODIUM 135 MEQ/L mmol/L 135-145 Feb 23, 2014 potassium, serum POTASSIUM 4.1 MEQ/L mmol/L 3.5-5.1 Feb 23, 2014 creatinine, serum CREATININE 0.8 mg/dL 0.5-1.4 Feb 23, 2014 urea nitrogen, blood BUN 9 mg/dL 10-13Feb 23, 2014 urea nitrogen/creatinine ratio, serum BUN/CREAT 11 null 6-25 Feb 23, 2014 albumin, serum ALBUMIN 3.5 g/dL 3.5-5.0 Feb 23, 2014 calcium, serum CALCIUM 8.7 mg/dL 8.5-10.5 Feb 23, 2014 alanine aminotransferase (SGPT), serum SGPT (ALT) 16 U/L 0-65 Feb 23, 2014 aspartate aminotransferase (SGOT), serum SGOT (AST) 18 U/L 0-37 Feb 23, 2014 alkaline phosphatase, serum ALK PHOS 100 U/L 39-136 Feb 23, 2014 thyroid stimulating hormone, serum TSH 1.910 uIU/mL 0.360-3.740 Feb 23, 2014 cholesterol, serum CHOLESTEROL 203 mg/dl <=199 High Feb 23, 2014 triglyceride, serum, fasting TRIGLYCERIDE 140 mg/dl <=149 Feb 23, 2014 HDL cholesterol, serum HDL 78 mg/dl >=61 Feb 23, 2014 LDL cholesterol, serum LDL 97 mg/dl <=99 Feb 23, 2014 sodium, serum SODIUM 135 MEQ/L mmol/L 135-145 Feb 23, 2014 potassium, serum POTASSIUM 4.1 MEQ/L mmol/L 3.5-5.1 Feb 23, 2014 creatinine, serum CREATININE 0.8 mg/dL 0.5-1.4 Feb 23, 2014 urea nitrogen, blood BUN 9 mg/dL 7-Feb 23, 2014 urea nitrogen/creatinine ratio, serum BUN/CREAT 11 null 6-25 Feb 23, 2014 albumin, serum ALBUMIN 3.5 g/dL 3.5-5.0 Feb 23, 2014 calcium, serum CALCIUM 8.7 mg/dL 8.5-10.5 Feb 23, 2014 alanine aminotransferase (SGPT), serum SGPT (ALT) 16 U/L 0-65 Feb 23, 2014 aspartate aminotransferase (SGOT), serum SGOT (AST) 18 U/L 0-37 Feb 23, 2014 alkaline phosphatase, serum ALK PHOS 100 U/L 39-136 Mar 11, 2012 cholesterol, serum CHOLESTEROL 198 [...] ratio, serum BUN/CREAT NOT APPLICABLE (calc) null 6-22 Mar 11, 2012 sodium, serum SODIUM 137 mmol/L [...] aminotransferase (SGOT), serum SGOT (AST) 43 U/L - High May 17, 2012 alanine aminotransferase (SGPT), serum SGPT (ALT) 25 U/L 6-40 Normal Jan 12, 2013 urea nitrogen, blood BUN 18 mg/dL - Normal Jan 12, 2013 creatinine, serum CREATININE [...] ratio, serum BUN/CREAT NOT APPLICABLE (calc) null 6-Feb 13, 2013 sodium, serum SODIUM 133 mmol/L [...] 2013 potassium, serum POTASSIUM 4.2 mmol/L 3.5-5.2 Dec 24, 2013 sodium, serum SODIUM 135 MEQ/L mmol/L 135-145 Dec 24, 2013 potassium, serum POTASSIUM 3.9 MEQ/L mmol/L 3.5-5.1 Dec 24, 2013 creatinine, serum CREATININE 0.7 mg/dL 0.5-1.4 Dec 24, 2013 urea nitrogen, blood BUN 10 mg/dL -Dec 24, 2013 urea nitrogen/creatinine ratio, serum BUN/CREAT 14 null 6-25 Dec 24, 2013 albumin, serum ALBUMIN 4.0 g/dL 3.5-5.0 Dec 24, 2013 calcium, serum CALCIUM 9.4 mg/dL 8.5-10.5 Dec 24, 2013 alanine aminotransferase (SGPT), serum SGPT (ALT) 37 U/L 0-65 Dec 24, 2013 aspartate aminotransferase (SGOT), serum SGOT (AST) 42 U/L 0-37 High Dec 24, 2013 alkaline phosphatase, serum ALK PHOS 82 U/L 39-136 Feb 23, 2014 thyroid stimulating hormone, serum TSH 1.910 uIU/mL 0.360-3.740 Feb 23, 2014 cholesterol, serum CHOLESTEROL 203 mg/dl <=199 High Feb 23, 2014 triglyceride, serum, fasting TRIGLYCERIDE 140 mg/dl <=149 Feb 23, 2014 HDL cholesterol, serum HDL 78 mg/dl >=61 Feb 23, 2014 LDL cholesterol, serum LDL 97 mg/dl <=99 Feb 23, 2014 sodium, serum SODIUM 135 MEQ/L mmol/L 135-145 Feb 23, 2014 potassium, serum POTASSIUM 4.1 MEQ/L mmol/L 3.5-5.1 Feb 23, 2014 creatinine, serum CREATININE 0.8 mg/dL 0.5-1.4 Feb 23, 2014 urea nitrogen, blood BUN 9 mg/dL -Feb 23, 2014 urea nitrogen/creatinine ratio, serum BUN/CREAT 11 null 6-25 Feb 23, 2014 albumin, serum ALBUMIN 3.5 g/dL 3.5-5.0 Feb 23, 2014 calcium, serum CALCIUM 8.7 mg/dL 8.5-10.5 Feb 23, 2014 alanine aminotransferase (SGPT), serum SGPT (ALT) 16 U/L 0-65 Feb 23, 2014 aspartate aminotransferase (SGOT), serum SGOT (AST) 18 U/L 0-37 Feb 23, 2014 alkaline phosphatase, serum ALK PHOS 100 U/L 39-136
--- OUTSIDE RECORDS SUMMARY | 2018-11-03 06:31 | XMS REPORT | Continuity of Care Document ---
Author Author [facility] Organization [facility] Address Unknown Phone Unavailable Care Team Providers Care Manganese Wheeler Name Role Phone MD Azam, Zeynep Unavailable Insurance Providers Payer name Policy type / Coverage type Policy ID Covered green party ID Policy [place] HUMANA - OPEN [...] Location Date Lab Report Zeynep Nascimento MD [facility] Dec 24, 2013 Allergies, Adverse Reactions, Alerts Type Substance [...] Active PREOPERATIVE EXAMINATION, UNSPECIFIED Dec 24, 2013 Active PREOPERATIVE CARDIOVASCULAR EXAMINATION Dec 24, 2013 Active OSTEOARTHRITIS OF KNEE Dec 24, 2013 Active Procedures Date Description Comments Oct 28, 2009 bone density Done Dec 17, 2011 smoking status former smoker Dec 24, 2013 smoking status Former smoker Dec 24, 2013 smoking/tobacco cessation, patient education and counseling no Medications Medication Instructions Start Date Status DIOVAN [...] height E&M - 8302-2 HEIGHT 66 in Results Date Description Test Name Value Reference Interpretation Status Dec 24, 2013 hemoglobin, blood HGB 13.8 g/dL 12.0-16.0 Dec 24, 2013 hematocrit, blood HCT 39.6 % 36.0-48.0 Dec 24, 2013 platelet count PLATELETS 246 K/CMM /mm3 133-450 Mar 11, 2012 hemoglobin, [...] platelet count PLATELETS 246 K/CMM /mm3 133-450 Mar 11, 2012 urine color UA COLOR [...] URN NONE SEEN null NONE SEEN Normal Dec 24, 2013 sodium, serum SODIUM 135 [...] phosphatase, serum ALK PHOS 82 U/L 39-136 Mar 11, 2012 cholesterol, serum [...] ratio, serum BUN/CREAT NOT APPLICABLE (calc) null 6-Mar 11, 2012 sodium, serum SODIUM 137 mmol/L [...] 2013 urea nitrogen, blood BUN 18 mg/dL 7- Normal Jan 12, 2013 creatinine, serum CREATININE [...]
--- OUTSIDE RECORDS SUMMARY | 2018-11-03 06:31 | XMS REPORT | Continuity of Care Document ---
Author Author [facility] Organization [facility] Address Unknown Phone Unavailable Care Team Providers Care Operative Supervisor Name Role Phone MD Azam, Zeynep HOROWITZ Unavailable Insurance Providers Payer name Policy type / Coverage type Policy ID Covered alliance party ID Policy [place] HU[place]NA - OPEN [...] - [place] [facility] HUMANA - OPEN ACCESS - [place] - [place] [facility] HU[place]NA - OPEN ACCESS - [place] POS - [place] [facility] HUMANA - OPEN ACCESS - NATIONAL POS - CHOIC Encounters Encounter Performer Location Date Lab Report Zeynep Nascimento MD [facility] Feb 23, 2014 Allergies, Adverse Reactions, Alerts [...]
--- OUTSIDE RECORDS SUMMARY | 2018-11-03 06:31 | XMS REPORT | Continuity of Care Document ---
Author Author [facility] Organization [facility] Address Unknown Phone Unavailable Care Team Providers Care Sulfide Head Operator Name Role Phone MD Azam, Zeynep HOROWITZ Unavailable Insurance Providers Payer name Policy type / Coverage type Policy ID Covered democrat ID Policy Hall HUMANA - OPEN ACCESS [...] [place] - [place] [facility] HU[place]NA - OPEN ACCESS - NATIONAL POS - CHOIC Encounters Encounter Performer Location Date Office Visit Zeynep Nascimento MD [facility] Feb 16, 2014 Allergies, Adverse Reactions, Alerts Type Substance [...] Active ROUTINE GYNECOLOGICAL EXAMINATION Feb 12, 2013 Inactive [...] 83 mm Hg May 16, 2012 weight Luis Alberto&M - 3141-9 WEIGHT 169 lb May 16, [...] - 8462-4 BP DIASTOLIC 75 mm Hg Results Date Description Test Name [...] 2013 urea nitrogen, blood BUN 10 mg/dL 10-13Dec 24, 2013 urea nitrogen/creatinine ratio, serum BUN/CREAT 14 null -Dec 24, 2013 albumin, serum ALBUMIN 4.0 g/dL [...] 2012 urea nitrogen, blood BUN 13 mg/dL -25 Normal Mar 11, 2012 creatinine, serum CREATININE [...] 2013 urea nitrogen, blood BUN 10 mg/dL 7-22 Dec 24, 2013 urea nitrogen/creatinine ratio, serum BUN/CREAT [...]
--- OUTSIDE RECORDS SUMMARY | 2018-11-03 06:32 | XMS REPORT ---
Author [facility] Address Unknown Phone Unavailable Care Team Providers Care Bench Assembler Electrical Name Role Phone Jose MORE Unavailable Unavailable Problems This patient has no known problems. Allergies, Adverse Reactions, Alerts This patient has no known allergies or adverse reactions. Medications This patient has no known medications. Results Test Description Test Time Test Comments Text Results Atomic Results Result Comments CHEST 2 VIEWS 2018-10-28 14:32:00 [place] [address] Patient Name: JAVIER HERBERT MR #: [id number] : 1945 Age/Sex: 73/F Req #: [id number] Adm Physician: Ordered by: ROSALIND MORE MD Report #: [id number] Location: OR Room/Bed: Procedure: [id number] DX/CHEST 2 VIEWS Exam Date: 10/28/18 Exam Time: 1340 REPORT STATUS: Signed EXAMINATION: CHEST 2 VIEWS INDICATION: Pre-operative COMPARISON: None FINDINGS: LINES/TUBES:None LUNGS:The lungs are well-inflated. No focal consolidation or pulmonary edema. PLEURA:No pleural effusion or pneumothorax. MEDIASTINUM:The cardiomediastinal silhouette appears normal in size and shape. Atherosclerotic calcifications of the thoracic aorta. BONES/SOFT TISSUES:No acute osseous injury. ABDOMEN:No free air under the diaphragm. IMPRESSION: No focal pneumonia or pulmonary edema. Signed by: Jessica Chisholm MD on 10/28/2018 2:33 PM Dictated By: JESSICA CHISHOLM MD [id number] Transcribed By: ERNST on 10/28/18 1433 COPY TO: ROSALIND MORE MD
--- NOTE | 2018-11-03 12:37 | Operative Report ---
DATE OF PROCEDURE: 11/03/2018 SURGEON: Carlos Mora MD PREOPERATIVE DIAGNOSES: 1. Paraesophageal hernia. 2. Chronic gastroesophageal reflux disease. POSTOPERATIVE DIAGNOSES: 1. Paraesophageal hernia. 2. Chronic gastroesophageal reflux disease. PREOPERATIVE INDICATION: Treat disease, prevent complications related to paraesophageal hernia. PROCEDURES: 1. Laparoscopic paraesophageal hernia repair with [place] fundoplication (CPT 4281). 2. Placement of tissue allograft matrix for wound healing (product code [id number], CPT 92651). ANESTHESIA: General. ASSISTANTS: Elias Collins, neurosurgical physician assistant (needed due to complexity of case). FLUIDS: 900 mL of crystalloid. ESTIMATED BLOOD LOSS: 40 mL. DRAINS: None. COMPLICATIONS: None. SPECIMENS: Hernia sac. GRAFTS: None. FINDINGS: Large paraesophageal hernia. PROCEDURE IN DETAIL: The patient was brought to the operating room and was intubated under general endotracheal anesthesia. She was sterilely prepped and draped in the usual fashion. A preprocedure pause was performed identifying the patient, use of perioperative antibiotics, intended procedure, and staff surgeon. Access was gained via a 5 mm left subcostal incision using a Veress needle. The abdomen was insufflated. Four additional trocars were placed in the standard position. Liver retractor was placed. Large paraesophageal hernia was identified with the proximal stomach herniated into the thoracic cavity. I then started the dissection by incising the gastrohepatic ligament via the pars flaccida technique. I spent a great deal of time meticulously dissecting the hernia from the surrounding structures in the chest cavity circumferentially until I was able to gain about 4 cm of intraabdominal esophageal length. Of note, there was a very thickened, enlarged hernia sac, which was excised and removed. Once this was complete, I then repaired the hiatal hernia with 0 Surgidac suture posteriorly with interrupted suture as well as single suture anteriorly. I then asked Anesthesia to place a 50-Kinyarwanda bougie, which was then guided into the stomach carefully. I then did a 360-degree fundoplication by wrapping the fundus around itself over length of about 3 cm using 2-0 Surgidac suture. I also placed a posterior fundic stitch, which was pexy to the posterior rowan with two of Surgidac suture in order to prevent reherniation of the stomach. I then placed two gastropexy sutures in the fundus and brought this out through the anterior abdominal wall as a technique to prevent further chance of herniation of gastric content, I did two sutures and these were then tied down to the anterior abdominal wall. I then achieved hemostasis, removed the liver tractor. We closed the large port site with 0 Vicryl suture using a Lowell Bautista technique. Hemostasis again was verified. The abdomen was desufflated and trocars were removed. We closed incision sites with 4-0 Monocryl suture in a subcuticular fashion. I used several mL of the placental tissue matrix allograft in order to help with wound healing. We used 0.5% bupivacaine at the preperitoneal incision sites. The patient tolerated the procedure well. Dermabond dressings were applied. All surgical sponge and instrument counts were correct. Carlos Mora MD Katie/MODL /[id number]
[2018-11-03 14:00] VITALS: BP 158/89
== END | disposition home or self-care (01) ==
LOC: OR 06:24
PROVIDERS: ATTEND Surgery
DX: K44.9 Diaphragmatic hernia without obstruction or gangrene (principal); I10 Essential (primary) hypertension; F41.9 Anxiety disorder, unspecified; Z96.651 Presence of right artificial knee joint; K21.9 Gastro-esophageal reflux disease without esophagitis; Z01.810 Encounter for preprocedural cardiovascular examination; Z01.811 Encounter for preprocedural respiratory examination
CPT/HCPCS: 15777; 43281; 71046; 93005; J0131; J0690; J1100; J2001 ×2; J2250; J2270; J2405; J2704; J3010; Q4100